=== PATIENT | female | born 1975 | race Caucasian/White ===

== ENCOUNTER 2021-12-28 17:14 | Emergency (ER) | payer OTHER ==
[~2021-12-28] VITALS: Ht 170.2 cm; Wt 76.2 kg
[~2021-12-28 17:14] MED LIST: AMOX1TAB12 PO; TUSSI-PRES LIQ118 ML PO; ZITHROMAX TRI-500 MG PO
== END 2021-12-28 22:50 | disposition home or self-care (01) ==
LOC: ER 17:14
DX: R22.42 Localized swelling, mass and lump, left lower limb (principal); M79.604 Pain in right leg; Z88.6 Allergy status to analgesic agent